=== PATIENT | male | born 1995 | race Hispanic/Latino ===

== ENCOUNTER 2017-05-12 10:49 | Emergency (ER) | payer SELFPAY ==
[~2017-05-12] VITALS: Ht 175.3 cm; Wt 120.2 kg
[2017-05-12] MEDS ORDERED: ACETAMINOPHEN/CODEINE 300MG - 30MG TAB PO ONE (12:30)
--- NOTE | 2017-05-12 13:44 | Diagnostic Imaging Report ---
History: Head pressure Comparison studies: None Technique: Axial images were obtained from the skull base to the vertex. Coronal and sagittal reconstructions obtained from the axial data. Findings: Scalp/skull: No abnormalities. No fractures, blastic or lytic lesions. Extra-axial spaces: No masses. No fluid collections. Brain sulci: Appropriate for age. Ventricles: Normal in size and configuration. No hydrocephalus. Parenchyma: No abnormal densities. No masses, hemorrhage, acute or chronic cortical vascular insults. Sellar/suprasellar region: No abnormalities Craniocervical junction: Patent foramen magnum. No Chiari one malformation. IMPRESSION: No abnormalities . Signed by: DR Aureliano Espinoza M.D. on 05/12/2017 1:40 PM
[2017-05-12 16:02] LABS: BASOPHILS % 0.2 % (0.0-1.0); EOSINOPHILS % 0.2 % (0.0-6.0); HEMATOCRIT 41.6 % (38.2-49.6); HEMOGLOBIN 14.5 g/dL (14.0-18.0); LYMPHOCYTES # (AUTO) 0.8 (1.0-3.2); LYMPHOCYTES % 16.3 % (18.0-39.1); MEAN CORPUSCULAR HEMOGLOBIN 27.8 pg (28-32); MEAN CORPUSCULAR HGB CONC 34.9 g/dL (31-35); MEAN CORPUSCULAR VOLUME 79.7 fL (81-99); MONOCYTES # (AUTO) 0.5 (0.2-0.8); MONOCYTES % 9.3 % (4.4-11.3); NEUTROPHILS # (AUTO) 3.7 (2.1-6.9); NEUTROPHILS % 73.6 % (38.7-80.0); PLATELET COUNT 166 x10e3/uL (140-360); RED BLOOD COUNT 5.22 x10e6/uL (4.3-5.7); RED CELL DISTRIBUTION WIDTH 12.9 % (11.7-14.4)
--- NOTE | 2017-05-12 16:08 | Diagnostic Imaging Report ---
PROCEDURE: A single AP view of the chest. COMPARISON: None. INDICATIONS: FEVER, HEADACHE FINDINGS: Lines/tubes: None. Lungs: The lungs are well inflated and clear. There is no evidence of pneumonia or pulmonary edema. Pleura: There is no pleural effusion or pneumothorax. Heart and mediastinum: The heart and the mediastinum are unremarkable. Bones: No acute bony abnormality. IMPRESSION: 1. No acute cardiopulmonary abnormalities. Douglas Sung M.D. Dictated by: Douglas Sung M.D. on 05/12/2017 at 16:08 Electronically approved by: Douglas Sung M.D. on 05/12/2017 at 16:08
[2017-05-12 16:20] LABS: ALANINE AMINOTRANSFERASE 118 IU/L (0-55); ALKALINE PHOSPHATASE 55 IU/L (40-150); ANION GAP 14.8 mmol/L (8-16); BLOOD UREA NITROGEN 10 mg/dL (7-26); BUN/CREATININE RATIO 11 (6-25); CALCIUM 8.9 mg/dL (8.4-10.2); CARBON DIOXIDE 25 mmol/L (22-29); CHLORIDE 98 mmol/L (98-107); EST GLOMERULAR FILTRATION RATE > 60 ML/MIN (60-); GLUCOSE 116 mg/dL (74-118); POTASSIUM 3.8 mmol/L (3.5-5.1); SODIUM 134 mmol/L (136-145)
[2017-05-12 16:28] LABS: CREATINE KINASE 111 IU/L (30-200)
--- NOTE | 2017-05-12 18:06 | Diagnostic Imaging Report ---
PROCEDURE: CT scan of the chest WITH intravenous contrast, using PE protocol. TECHNIQUE: The chest was scanned utilizing a multidetector helical scanner from the lung apex through the level of the adrenal glands after the IV administration of 65 cc of Isovue 370, with special concentration on the pulmonary arteries.. Coronal and sagittal multiplanar reformations were obtained. COMPARISON: [facility] [place], , CHEST SINGLE (NOT PORTABLE), 05/12/2017, 15:59. INDICATIONS: HIGH BLOOD PRESSURE, POSITIVE D DIMER FINDINGS: Lines/tubes: None. Lungs and Airways: No filling defects in the main, right or left pulmonary arteries to their segmental level to suggest pulmonary embolism. 2 mm pulmonary nodule in the lingula (series 3, image 62). No other pulmonary nodules. No masses or consolidation. Airways are clear, without endobronchial lesions. Pleura: The pleural spaces are clear. Heart and mediastinum: The thyroid gland is normal. The heart and pericardium are within normal limits. No pericardial effusion. The aorta is non-aneurysmal. Main pulmonary artery is normal in caliber. Lymph nodes: No mediastinal, hilar, or axillary adenopathy. Abdomen: Limited contrast-enhanced views of the upper abdomen show no abnormality within the visualized pancreas or kidneys. Marked diffuse hepatic steatosis. Mild splenomegaly, measuring 14.2 cm in AP diameter. The adrenal glands are normal. Bones: No aggressive lytic lesion. Moderate bilateral gynecomastia. IMPRESSION: 1. no CT evidence of pulmonary embolism. 2. 2 mm pulmonary nodule in the lingula. No further followup is indicated given its small size, per Fleischner Society 2017 guidelines, if this is a low risk patient. The lungs are otherwise clear. 3. Marked diffuse hepatic steatosis. No focal lesions. 4. Mild splenomegaly. 5. Moderate bilateral gynecomastia. Douglas Sung M.D. Dictated by: Douglas Sung M.D. on 05/12/2017 at 18:06 Electronically approved by: Douglas Sung M.D. on 05/12/2017 at 18:06
[2017-05-12] MEDS ORDERED: SODIUM CHLORIDE 0.9% 1000ML 1,000 ML IV STA (18:27)
[2017-05-12] MEDS ORDERED: KETOROLAC TROMETHAMINE 30 MG/ML VIAL IV STA (18:27)
[2017-05-12] MEDS ORDERED: METOCLOPRAMIDE HCL 10 MG/2ML VIAL IV ONE (18:30)
[2017-05-12] MEDS ORDERED: DIPHENHYDRAMINE HCL INJ 50 MG/ML VIAL IV ONE (18:30)
[2017-05-12 19:05] LABS: FREE THYROXINE INDEX 2.358 (1.4-3.8); THYROID STIMULATING HORMONE 1.552 uIU/mL (0.350-4.940)
--- NOTE | 2017-05-12 19:48 | Diagnostic Imaging Report ---
History: Headache and neck pain. History of trauma a week ago. Comparison studies: None Technique: Axial images were obtained through the cervical region.. Coronal and sagittal images reconstructed from the axial data.. Intravenous contrast: None Findings: Fractures: None. Soft tissue injuries: None. Atlantoaxial articulation: Intact. Alignment: Loss of normal cervical lordosis is either positional or due to muscle spasm.. No scoliosis. Cervicomedullary junction: No abnormalities. The foramen magnum is patent. Soft tissues: Incidental 8.5 mm hypodense nodule in left lobe of the thyroid gland. Vertebrae: No fractures, infection or neoplasm. Degenerative changes: None. IMPRESSION: 1. No acute cervical spine fracture. Loss of normal cervical lordosis is either positional or due to muscle spasm. 2. Ligament, spinal cord and or vascular abnormalities cannot be excluded on the basis of this examination. Signed by: Dr. Kristin Harrell M.D. on 05/12/2017 7:44 PM
[2017-05-12] MEDS ORDERED: IOPAMIDOL 370 MG/ML 200 ML INFUS..BTL INJ ONE (21:50)
[2017-05-12] MEDS ORDERED: SODIUM CHLORIDE 0.9% 50ML 50 ML ONE (21:50)
== END 2017-05-12 20:02 | disposition home or self-care (01) ==
LOC: ER 10:49
DX: G44.89 Other headache syndrome (principal)
CPT/HCPCS: 36415; 70450; 71045; 71260; 72125; 80053; 82550; 82553; 84436; 84443; 84479; 84484; 85025; 85379; 87400; 93005; 99284; J1200; J1885; J2765; J7030; Q9967